=== PATIENT | female | born 1980 | race Caucasian/White ===

== ENCOUNTER 2024-12-23 08:15 | Emergency (ER) | payer MEDICAID, SELFPAY ==
[2024-12-23 08:19] VITALS: BP 119/74; PULSE 83; TEMP 36.5; O2SAT 100; BMI 30.2
--- NOTE | 2024-12-23 08:54 | ECG_ITS ---
The [facility] Test Date: 2024-12-23 Pat Name: KYREE GALLEGO Department: Room: - Gender: Female [employer]: : 1980 Requested By: [id number] Order Number: [id number] Reading MD: KALYAN PEDRO Measurements Intervals [place] Rate: 70 P: 43 AL: 170 QRS: 20 QRSD: 84 T: 57 QT: 410 QTc: 432 Interpretive Statements 1100 Sinus rhythm 8102 Low QRS voltage in chest leads 9120 atypical ECG No previous ECG available for comparison Electronically Signed On 12-24-2024 9:59:30 EDT by KALYAN PEDRO
--- NOTE | 2024-12-23 08:59 | ED.GENADUL1 ---
HPI HPI - General Adult General Chief complaint: Psychiatric Symptoms Stated complaint: SUICIDAL Time Seen by Provider: 12/23/24 08:50 Source: patient Mode of arrival: ambulance Limitations: no limitations History of Present Illness HPI narrative: 44-year-old female presents for thoughts of killing yourself. She is recently been hearing voices that are mocking her and has been seeing demons. She was thinking about killing herself with a gun that she has in the home. Right now she does not have any physical complaints and states she has been taking her medications. She states she smoked crack 4 days ago and no other drugs in her system. Related Data Home Medications ?Medication ?Instructions ?Recorded ?Confirmed benztropine 1 mg tablet 1 mg PO DAILY 12/23/24 12/23/24 benztropine 1 mg tablet 1 mg PO DAILY 12/23/24 12/23/24 buspirone 10 mg tablet 10 mg PO BID 12/23/24 12/23/24 carbamazepine 200 mg tablet 200 mg PO TID 12/23/24 12/23/24 chlorpromazine 25 mg tablet 25 mg PO DAILY PRN anxiety 12/23/24 12/23/24 clonidine HCl 0.1 mg tablet 0.1 mg PO QAM 12/23/24 12/23/24 clonidine HCl 0.2 mg tablet 0.2 mg PO .QHS 12/23/24 12/23/24 gabapentin 600 mg tablet 600 mg PO TID 12/23/24 12/23/24 lurasidone 120 mg tablet 100 mg PO DAILY 12/23/24 12/23/24 melatonin 3 mg capsule 9 mg PO DAILY 12/23/24 12/23/24 mirtazapine 15 mg tablet 15 mg PO .qhs 12/23/24 12/23/24 zonisamide 100 mg capsule 100 mg PO BID 12/23/24 12/23/24 zonisamide 100 mg capsule 100 mg PO BID 12/23/24 12/23/24 (Zonegran) Allergies Allergy/AdvReac Type Severity Reaction Status Date / Time aripiprazole (From Abilify) AdvReac Severe Hallucinati Verified 12/23/24 08:19 ng prazosin (From Minipress) AdvReac Severe HTN Verified 12/23/24 08:19 risperidone AdvReac Severe tardive Verified 12/23/24 08:19 diskinesia trazodone AdvReac Mild Unknown Verified 12/23/24 08:19 Opioid HPI Opioid Management Most Recent Opioid Data: Ur Phencyclidine Scrn, (NEGATIVE) Negative Today, 08:45 Review of Systems ROS Narrative A ten point review of systems is negative except as noted above. PFSH PFSH Social History Little interest or pleasure in doing things: more than half the days Feeling down, depressed, or hopeless: more than half the days Exam Narrative Exam Narrative: Nurses note and vital signs reviewed and patient is not hypoxic. General: The patient appears well and in no apparent distress. Patient is resting comfortably on cart. Skin: Warm, dry, no pallor noted. There is no rash noted. Head: Normocephalic, atraumatic Eye: Normal conjunctiva, no drainage Ears, Nose, Mouth, and Throat: oral mucosa is moist. Nares patent. Cardiovascular: Regular Rate and Rhythm Respiratory: Patient is in no distress, no accessory muscle use, lungs are clear to auscultation, no wheezing, rales or rhonchi Back: non-tender GI: Soft and nontender Musculoskeletal: The patient has no evidence of calf tenderness, no pitting edema, symmetrical pulses noted bilaterally Neurological: A&O, normal speech Psychiatric: Cooperative Constitutional Vital Signs, click to edit/add: Last Vital Signs Temp 97.7 F 12/23/24 08:19 Pulse 83 12/23/24 08:19 Resp 18 12/23/24 08:19 BP 119/74 12/23/24 08:19 Pulse Ox 100 12/23/24 08:19 O2 Del Method Room Air 12/23/24 08:19 Course Vital Signs Vital signs: Vital Signs Temperature 97.7 F 12/23/24 08:19 Pulse Rate 83 12/23/24 08:19 Respiratory Rate 18 12/23/24 08:19 Blood Pressure 119/74 12/23/24 08:19 Pulse Oximetry 100 12/23/24 08:19 Oxygen Delivery Method Room Air 12/23/24 08:19 Temperature 97.7 F 12/23/24 08:19 Pulse Rate 83 12/23/24 08:19 Respiratory Rate 18 12/23/24 08:19 Blood Pressure 119/74 12/23/24 08:19 Pulse Oximetry 100 12/23/24 08:19 Oxygen Delivery Method Room Air 12/23/24 08:19 Medical Decision Making MDM Narrative Medical decision making narrative: The patient is medically cleared and is voluntarily going to [address] at [facility]. She is stable and agreeable for transfer. Differential Diagnosis Differential Diagnosis: Suicidal ideation, schizoaffective disorder, depression, substance Lab Data Lab results reviewed: Yes I reviewed the patient's lab results Labs: Lab Results 12/23/24 12/23/24 Range/Units 08:45 09:00 WBC 2.9 L (4.0-11.0) 10^3/uL RBC 4.16 L (4.20-5.40) 10^6/uL Hgb 11.4 L (12.0-16.0) g/dL Hct 34.9 L (36.0-48.0) % MCV 83.9 (81.0-99.0) fL MCH 27.4 (26.7-34.0) pg MCHC 32.7 (29.9-35.2) g/dL RDW 14.9 (11.0-15.0) % Plt Count 187 (150-450) 10^3/uL MPV 11.5 (9.5-13.5) fL Neut % (Auto) 46.6 (43.0-75.0) % Lymph % (Auto) 38.8 (20.5-60.0) % Smith % (Auto) 12.2 H (1.7-12.0) % Eos % (Auto) 1.4 (0.9-7.0) % Baso % (Auto) 0.7 (0.2-2.0) % Neut # (Auto) 1.3 L (1.4-6.5) 10^3/uL Lymph # (Auto) 1.1 L (1.2-3.8) 10^3/uL Smith # (Auto) 0.4 (0.3-0.8) 10^3/uL Eos # (Auto) 0.0 (0.0-0.7) 10^3/uL Baso # (Auto) 0.0 (0.0-0.1) 10^3/uL Abs Immat Gran (auto) 0.01 (0.00-0.03) 10^3/uL Imm/Tot Granulo (auto) 0.3 (0.0-0.5) % Sodium 137 (136-145) mmol/L Potassium 3.7 (3.5-5.1) mmol/L Chloride 102 (98-107) mmol/L Carbon Dioxide 26.3 (21.0-32.0) mmol/L Anion Gap 12.4 BUN 17.0 (7.0-18.0) mg/dL Creatinine 0.98 (0.55-1.02) mg/dL Est GFR ( Amer) >60 (>=60 mL/min/1.73m^2) Est GFR (Non-Af Amer) >60 (>=60 mL/min/1.73m^2) BUN/Creatinine Ratio 17.3 Glucose 96 (74-106) mg/dL Calcium 8.8 (8.5-10.1) mg/dL Serum HCG, Qual Negative (NEGATIVE) Urine Color Lt. yellow (YELLOW) Urine Clarity Clear (CLEAR) Urine pH 6.0 (5.0-9.0) Ur Specific [place] 1.010 (1.005-1.025) Urine Protein Negative (NEG/TRACE) mg/dL Urine Glucose (UA) Negative (NEGATIVE) mg/dL Urine Ketones Negative (NEGATIVE) mg/dL Urine Occult Blood Negative (NEGATIVE) Urine Nitrite Negative (NEGATIVE) Urine Bilirubin Negative (NEGATIVE) Urine Urobilinogen 0.2 (0.2-1.0) EU/dL Ur Leukocyte Esterase Trace A (NEGATIVE) Urine RBC 0-2 (0-2) #/HPF Urine WBC 0-2 A (NONE SEEN) #/HPF Ur Squamous Epith Cells Moderate A (NONE/RARE) #/LPF Urine Crystals None seen (None Seen) #/HPF Urine Bacteria Small A (NONE SEEN) #/HPF Urine Casts None seen (NONE SEEN) #/LPF Urine Mucus None seen (NONE SEEN) Ur [place]icated[place] [place] <2.8 (<=19.9) mg/dL Urine Opiates Screen Negative (NEGATIVE) Ur Buprenorphine Scrn Negative (NEGATIVE) Ur Oxycodone Screen Negative (NEGATIVE) Urine Methadone Screen Negative (NEGATIVE) Acetaminophen <2.0 L (10.0-30.0) ug/mL Ur Barbiturates Screen Negative (NEGATIVE) U Tricyclic Antidepress Negative (NEGATIVE) Ur Phencyclidine Scrn Negative (NEGATIVE) Ur Amphetamines Screen Positive A (NEGATIVE) U Methamphetamines Scrn Negative (NEGATIVE) U Benzodiazepines Scrn Negative (NEGATIVE) Urine Cocaine Screen Negative (NEGATIVE) U Cannabinoids Screen Negative (NEGATIVE) Ethanol Quant <3 mg/dL ECG Data Attestation: I personally reviewed and interpreted this ECG as follows: (EKG on my interpretation shows sinus rhythm without acute change.) Discharge Plan Discharge Chief Complaint: Psychiatric Symptoms Clinical Impression: Schizoaffective disorder Patient Disposition: [facility] Time of Disposition Decision: 11:06 Discharge Location: [facility] Condition: Good Mode of Transportation: EMS
[2024-12-23 09:12] LABS: Hematocrit 34.9 % (36.0-48.0); Hemoglobin 11.4 g/dL (12.0-16.0); Immature Granulocytes Abs Auto 0.01 10^3/uL (0.00-0.03); Immature Granulocytes Pct Auto 0.3 % (0.0-0.5); Lymphocytes Absolute Auto 1.1 10^3/uL (1.2-3.8); Mean Corpuscular HGB Conc 32.7 g/dL (29.9-35.2); Mean Corpuscular Hemoglobin 27.4 pg (26.7-34.0); Mean Corpuscular Volume 83.9 fL (81.0-99.0); Platelet Count 187 10^3/uL (150-450); Red Blood Count 4.16 10^6/uL (4.20-5.40); White Blood Count 2.9 10^3/uL (4.0-11.0)
[2024-12-23 09:13] LABS: Glucose Urine UA NEGATIVE (NEGATIVE)
[2024-12-23 09:23] LABS: Cannabinoid Screen Urine NEGATIVE (NEGATIVE); Methamphetamines Screen Urine NEGATIVE (NEGATIVE); Tricyclic Antidepressant Urine NEGATIVE (NEGATIVE)
[2024-12-23 09:26] LABS: Cast Seen? NONE SEEN #/LPF (NONE SEEN); Crystals Seen? None Seen #/HPF (None Seen)
[2024-12-23 09:27] LABS: Urine Culture Indicated YES-FRMC
[2024-12-23 09:35] LABS: Salicylate <2.8 mg/dL (<=19.9)
[2024-12-23 09:37] LABS: Acetaminophen <2.0 ug/mL (10.0-30.0); Anion Gap 12.4; Blood Urea Nitrogen 17.0 mg/dL (7.0-18.0); Carbon Dioxide 26.3 mmol/L (21.0-32.0); Chloride 102 mmol/L (98-107); Estimated GFR (African America >60 (>=60 mL/min/1.73m^2); Estimated GFR (Non-African Ame >60 (>=60 mL/min/1.73m^2); Glucose 96 mg/dL (74-106); Potassium 3.7 mmol/L (3.5-5.1); Sodium 137 mmol/L (136-145)
[2024-12-23 09:38] LABS: Calcium 8.8 mg/dL (8.5-10.1)
== END 2024-12-23 11:30 ==
PROVIDERS: Emergency Provider Emergency Medicine
DX: F25.9 Schizoaffective disorder, unspecified (principal); F15.90 Other stimulant use, unspecified, uncomplicated
CPT/HCPCS: 36415; 80048; 80179; 80307; 80320; 80329; 81001; 84703; 85025; 87086; 93005; 99285